=== PATIENT | male | born 1960 | race African-American/Black ===

== ENCOUNTER 2019-03-29 14:12 | Inpatient (IN) | payer OTHER ==
[2019-03-29 16:33] VITALS: BMI 23.1
--- NOTE | 2019-03-29 17:59 | HP ---
COWS - Scale Resting Pulse: 1= NM 81-100 Sweatin= Chills/Flushing Restless Observation: 1= Difficult to Sit Still Pupil Size: 1= Pupils >than Normal Bone or Joint Aches: 2= Severe Diffuse Aches Runny Nose/ Eye Tearin= Runny Nose/Eyes GI Upset > 30mins: 1= Stomach Cramp Tremor Observation: 1= Tremor [place], Not Seen Yawning Observation: 0= None Anxiety or Irritability: 1=Feels Anxious/Irritable Goose Flesh Skin: 3=Piloerection COWS Score: 14 CIWA Score - Admission Criteria [facility] Guidelines: Admission for Medically Managed Detox: Requires at least one of the followin. CIWA greater than 12 2. Seizures within the past 24 hours 3. Delirium tremens within the past 24 hours 4. Hallucinations within the past 24 hours 5. Acute intervention needed for co occurring medical disorder 6. Acute intervention needed for co occurring psychiatric disorder 7. Severe withdrawal that cannot be handled at a lower level of care (continued vomiting, continued diarrhea, abnormal vital signs) requiring intravenous medication and/or fluids 8. Admission ROS [facility] Chief Complaint: detox from heroin and cocaine 59 yo with no stated medical problems, on no medications. First time here. Lives in [place]. Has a court case related to drugs, decided to come here for detox. Says he is not mandated by court. Pt was last in detox in 2018 in [place], says he restarted use right after discharge. Pt has never been on suboxone or methadone. Pt is homeless, does not work. heroin- 3-4 bags/day, last OD 2017, went to ER. Has no narcan kit. Woud like to start MAT methadone/suboxone Jayme- crack $200-300/day THC- rare use no alcohol use tobacco use- 2-3 cigs, does not want nicotine replacement therapy Allergies/Adverse Reactions: Allergies Allergy/AdvReac Type Severity Reaction Status Date / Time red meat Allergy Severe Hives Uncoded 03/29/19 16:23 - Ebola screening Have you traveled outside of the country in the last 21 days: No (N) Have you had contact with anyone from an Ebola affected area: No Do you have a fever: No Patient History - Patient Medical History Hx Anemia: No - Patient Surgical History Past Surgical History: No - PPD History Documented Results: Negative w/o proof PPD to be Administered?: Yes - Smoking Cessation Smoking history: Current every day smoker Have you smoked in the past 12 months: Yes Aproximately how many cigarettes per day: 2 Hx Chewing Tobacco Use: No Initiated information on smoking cessation: Yes 'Breaking Loose' booklet given: 03/29/19 - Substance & Tx. History Hx Alcohol Use: No Hx Substance Use: Yes Substance Use Type: Heroin - Substances abused Heroin Substance route: Inhalation Frequency: Daily Amount used: 2 to 3 bags Age of first use: 55 Date of last use: 03/28/19 Cocaine Substance route: Oral Frequency: Daily Amount used: 100 to 200 dollars Age of first use: 55 Date of last use: 03/28/19 Family Disease History - Family Disease History Family History: Denies Admission Physical Exam [facility] - Vital Signs Vital Signs: Vital Signs - 24 hr 03/29/19 03/29/19 16:22 17:07 Temperature 97.8 F 97.8 F Pulse Rate 86 86 Respiratory 16 16 Rate Blood Pressure 129/86 129/86 - Physical General Appearance: Yes: Within Normal Limits, Mild Distress HEENTM: Yes: Within Normal Limits, EOMI, Hearing grossly Normal, Normal Voice, STEFF Respiratory: Yes: Within Normal Limits, Chest Non-Tender, Lungs Clear Neck: Yes: Within Normal Limits, No masses,lesions,Nodules Cardiology: Yes: Within Normal Limits, Regular Rate, S1, S2 Abdominal: Yes: Within Normal Limits, Normal Bowel Sounds, Non Tender, Flat Back: Yes: Within Normal Limits Musculoskeletal: Yes: Within Normal Limits Extremities: Yes: Within Normal Limits Neurological: Yes: Within Normal Limits, 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 NML intact, Fully Oriented Integumentary: Yes: Within Normal Limits, Normal Color Lymphatic: Yes: Within Normal Limits - Diagnostic (1) Opioid use disorder Current Visit: Yes Status: Acute (2) Cocaine use disorder Current Visit: Yes Status: Acute (3) Tobacco use disorder Current Visit: Yes Status: Acute Breathalyzer - Breathalyzer Breathalyzer: 0 Urine Drug Screen - Test Device Lot number: [id number] Expiration date: 12/22/20 - Control Is test valid?: Yes - Results Drug screen NEGATIVE: No Urine drug screen results: THC-Marijuana, JAYME-Cocaine, FEN-Fentanyl, MOP-Opiates Inpatient Rehab Admission - Rehab Decision to Admit Inpatient rehab admission?: No
[2019-03-29] MEDS ORDERED: clonazePAM 0.5 MG TABLET PO PRN (18:04)
[2019-03-29] MEDS ORDERED: cloNIDine HCL 0.1 MG TABLET PO PRN (18:04)
[2019-03-29] MEDS ORDERED: ACETAMINOPHEN 325 MG TABLET (FP) PO PRN ×2 (18:05)
[2019-03-29] MEDS ORDERED: hydrOXYzine PAMOATE 25 MG CAPSULE (FP) PO PRN (18:05)
[2019-03-29] MEDS ORDERED: MENTHOL/PHENOL 1 EACH UD MM PRN (18:05)
[2019-03-29] MEDS ORDERED: MELATONIN 5 MG TABLETS PO PRN (18:05)
[2019-03-29] MEDS ORDERED: METHOCARBAMOL 500 MG TABLET PO PRN (18:05)
[2019-03-29] MEDS ORDERED: IBUPROFEN 400 MG TABLET (FP) PO PRN (18:05)
[2019-03-29] MEDS ORDERED: MAGNESIUM CITRATE 300 ML BOTTLE PO PRN (18:05)
[2019-03-29] MEDS ORDERED: BISMUTH SUBSALICYLATE 524 MG/30 ML UD PO PRN (18:05)
[2019-03-29] MEDS ORDERED: MAG HYDROX/AL HYDROX/SIMETH 30 ML UNIT-DOSE CUP PO PRN (18:05)
[2019-03-29] MEDS ORDERED: MAGNESIUM HYDROX 2400MG/30ML ORAL SUSPENSION 30 ML CUP PO PRN (18:05)
[2019-03-29] MEDS ORDERED: METHADONE HCL 10 MG TABLET (FOR DETOX USE ONLY) PO ONE ×2 (19:00→23:00)
[2019-03-29] MEDS: THIAMINE HCL 100 MG TABLET (FP) PO SCH (23:43)
[2019-03-30] MEDS ORDERED: ALBUTEROL SO4 8 GM HFA INHALER IH PRN (08:57)
[2019-03-30] MEDS: PRENATAL VITAMINS W/ FOLIC ACID TABLET (FP) PO SCH (09:34)
[2019-03-30] MEDS: BUDESONIDE/FORMETEROL FUMARATE 80/4.5 mcg INHALER IH SCH ×2 (09:34→22:22)
[2019-03-30] MEDS ORDERED: METHADONE HCL 10 MG TABLET (FOR DETOX USE ONLY) PO ONE (10:00)
[2019-03-30 10:26] LABS: HEMATOCRIT 37.3 % (35.4-49); HEMOGLOBIN 12.6 GM/dL (11.7-16.9); MCH 31.6 pg (25.7-33.7); MCHC 33.7 g/dl (32.0-35.9); MEAN PLT VOLUME 8.3 fl (7.5-11.1); PLATELET COUNT 306 K/MM3 (134-434); RBC 3.97 M/mm3 (4.00-5.60); RDW 14.1 % (11.9-15.9); WHITE BLOOD COUNT 4.4 K/mm3 (4.0-10.0)
[2019-03-30 10:30] LABS: ALBUMIN 3.4 g/dl (3.4-5.0); BILIRUBIN,TOTAL 0.4 mg/dL (0.2-1); CALCIUM 8.7 mg/dL (8.5-10.1); CREATININE 1.1 mg/dL (0.55-1.3); TOT PROT 6.3 g/dl (6.4-8.2)
--- NOTE | 2019-03-30 12:06 | PN ---
S COWS - Scale Resting Pulse: 1= CO 81-100 Sweatin= Chills/Flushing Restless Observation: 1= Difficult to Sit Still Pupil Size: 1= Pupils >than Normal Bone or Joint Aches: 2= Severe Diffuse Aches Runny Nose/ Eye Tearin= Nasal Congestion GI Upset > 30mins: 2= Nausea/Diarrhea Tremor Observation of Outstretched Hands: 2= Slight Tremor Visible Yawning Observation: 1= 1-2x During Session Anxiety or Irritability: 2=Irritable/Anxious Goose Flesh Skin: 0=Smooth Skin COWS Score: 14 BHS Progress Note (SOAP) Subjective: alert,irritable,anxious,interrupted sleep,tremor,pain in the body and back Objective: 03/30/19 12:04 Vital Signs Temperature 97.7 F 03/30/19 09:22 Pulse Rate 94 H 03/30/19 09:22 Respiratory Rate 18 03/30/19 09:22 Blood Pressure 140/90 03/30/19 09:22 O2 Sat by Pulse Oximetry (%) Laboratory Last Values WBC 4.4 K/mm3 (4.0-10.0) 03/30/19 07:30 RBC 3.97 M/mm3 (4.00-5.60) L 03/30/19 07:30 Hgb 12.6 GM/dL (11.7-16.9) 03/30/19 07:30 Hct 37.3 % (35.4-49) 03/30/19 07:30 MCV 94.0 fl (80-96) 03/30/19 07:30 MCH 31.6 pg (25.7-33.7) 03/30/19 07:30 MCHC 33.7 g/dl (32.0-35.9) 03/30/19 07:30 RDW 14.1 % (11.9-15.9) 03/30/19 07:30 Plt Count 306 K/MM3 (134-434) 03/30/19 07:30 MPV 8.3 fl (7.5-11.1) 03/30/19 07:30 Sodium 140 mmol/L (136-145) 03/30/19 07:30 Potassium 4.0 mmol/L (3.5-5.1) 03/30/19 07:30 Chloride 106 mmol/L (98-107) 03/30/19 07:30 Carbon Dioxide 29 mmol/L (21-32) 03/30/19 07:30 Anion Gap 5 MMOL/L (8-16) L 03/30/19 07:30 BUN 11 mg/dL (7-18) 03/30/19 07:30 Creatinine 1.1 mg/dL (0.55-1.3) 03/30/19 07:30 Est GFR (CKD-EPI)AfAm 85.31 03/30/19 07:30 Est GFR (CKD-EPI)NonAf 73.61 03/30/19 07:30 Random Glucose 90 mg/dL (74-106) 03/30/19 07:30 Calcium 8.7 mg/dL (8.5-10.1) 03/30/19 07:30 Total Bilirubin 0.4 mg/dL (0.2-1) 03/30/19 07:30 AST 16 U/L (15-37) 03/30/19 07:30 ALT 19 U/L (13-61) 03/30/19 07:30 Alkaline Phosphatase 61 U/L (45-117) 03/30/19 07:30 Total Protein 6.3 g/dl (6.4-8.2) L 03/30/19 07:30 Albumin 3.4 g/dl (3.4-5.0) 03/30/19 07:30 03/30/19 12:05 rpr pending Assessment: 03/30/19 12:06 withdrawal symptom Plan: continue detox
[2019-03-30 19:52] LABS: PH,URINE 5.5 (5.0-8.0); URINE APPEARANCE CLOUDY; URINE BILIRUBIN NEGATIVE (NEGATIVE); URINE COLOR YELLOW; URINE GLUCOSE (UA) TRACE (NEGATIVE); URINE KETONE TRACE (NEGATIVE); URINE LEUK ESTERASE NEGATIVE (NEGATIVE); URINE NITRITE NEGATIVE (NEGATIVE); URINE PROTEIN NEGATIVE (NEGATIVE); URINE UROBILINOGEN 0.2 mg/dL (0.2-1.0)
[2019-03-30] MEDS: THIAMINE HCL 100 MG TABLET (FP) PO SCH (22:22)
[2019-03-31] MEDS ORDERED: METHADONE HCL 10 MG TABLET (FOR DETOX USE ONLY) PO ONE (10:00)
--- NOTE | 2019-03-31 10:01 | PN ---
S CIWA - CIWA Score Nausea/Vomitin Muscle Tremors: 2 Anxiety: 2 Agitation: 2 Paroxysmal Sweats: 1-Minimal Palms Moist Orientation: 0-Oriented Tacttile Disturbances: 1-Very Mild Itch/Numbness Auditory Disturbances: 1-Very Mild Visual Disturbances: 0-None Headache: 1-Very Mild CIWA-Ar Total Score: 12 BHS Progress Note (SOAP) Subjective: alert,irritable,anxious,interrupted sleep,tremor Objective: 03/31/19 10:00 Vital Signs Temperature 98.2 F 03/31/19 09:18 Pulse Rate 79 03/31/19 09:18 Respiratory Rate 18 03/31/19 09:18 Blood Pressure 124/86 03/31/19 09:18 O2 Sat by Pulse Oximetry (%) 03/31/19 10:00 Laboratory Last Values WBC 4.4 K/mm3 (4.0-10.0) 03/30/19 07:30 RBC 3.97 M/mm3 (4.00-5.60) L 03/30/19 07:30 Hgb 12.6 GM/dL (11.7-16.9) 03/30/19 07:30 Hct 37.3 % (35.4-49) 03/30/19 07:30 MCV 94.0 fl (80-96) 03/30/19 07:30 MCH 31.6 pg (25.7-33.7) 03/30/19 07:30 MCHC 33.7 g/dl (32.0-35.9) 03/30/19 07:30 RDW 14.1 % (11.9-15.9) 03/30/19 07:30 Plt Count 306 K/MM3 (134-434) 03/30/19 07:30 MPV 8.3 fl (7.5-11.1) 03/30/19 07:30 Sodium 140 mmol/L (136-145) 03/30/19 07:30 Potassium 4.0 mmol/L (3.5-5.1) 03/30/19 07:30 Chloride 106 mmol/L (98-107) 03/30/19 07:30 Carbon Dioxide 29 mmol/L (21-32) 03/30/19 07:30 Anion Gap 5 MMOL/L (8-16) L 03/30/19 07:30 BUN 11 mg/dL (7-18) 03/30/19 07:30 Creatinine 1.1 mg/dL (0.55-1.3) 03/30/19 07:30 Est GFR (CKD-EPI)AfAm 85.31 03/30/19 07:30 Est GFR (CKD-EPI)NonAf 73.61 03/30/19 07:30 Random Glucose 90 mg/dL (74-106) 03/30/19 07:30 Calcium 8.7 mg/dL (8.5-10.1) 03/30/19 07:30 Total Bilirubin 0.4 mg/dL (0.2-1) 03/30/19 07:30 AST 16 U/L (15-37) 03/30/19 07:30 ALT 19 U/L (13-61) 03/30/19 07:30 Alkaline Phosphatase 61 U/L (45-117) 03/30/19 07:30 Total Protein 6.3 g/dl (6.4-8.2) L 03/30/19 07:30 Albumin 3.4 g/dl (3.4-5.0) 03/30/19 07:30 Urine Color Yellow 03/30/19 15:50 Urine Appearance Cloudy 03/30/19 15:50 Urine pH 5.5 (5.0-8.0) 03/30/19 15:50 Ur Specific [place] 1.026 (1.010-1.035) 03/30/19 15:50 Urine Protein Negative (NEGATIVE) 03/30/19 15:50 Urine Glucose (UA) Trace (NEGATIVE) 03/30/19 15:50 Urine Ketones Trace (NEGATIVE) H 03/30/19 15:50 Urine Blood Negative (NEGATIVE) 03/30/19 15:50 Urine Nitrite Negative (NEGATIVE) 03/30/19 15:50 Urine Bilirubin Negative (NEGATIVE) 03/30/19 15:50 Urine Urobilinogen 0.2 mg/dL (0.2-1.0) 03/30/19 15:50 Ur Leukocyte Esterase Negative (NEGATIVE) 03/30/19 15:50 RPR Titer Nonreactive (NONREACTIVE) 03/30/19 07:30 Assessment: 03/31/19 10:00 withdrawal symptom Plan: continue detox
[2019-03-31] MEDS: PRENATAL VITAMINS W/ FOLIC ACID TABLET (FP) PO SCH (10:54)
[2019-03-31] MEDS: BUDESONIDE/FORMETEROL FUMARATE 80/4.5 mcg INHALER IH SCH ×2 (10:54→22:22)
[2019-03-31] MEDS: THIAMINE HCL 100 MG TABLET (FP) PO SCH (22:22)
[2019-04-01 07:13] VITALS: BP 133/82; PULSE 75; TEMP 96.8
[2019-04-01] MEDS ORDERED: METHADONE HCL 10 MG TABLET (FOR DETOX USE ONLY) PO ONE (10:00)
[2019-04-01] MEDS: PRENATAL VITAMINS W/ FOLIC ACID TABLET (FP) PO SCH (11:02)
[2019-04-01] MEDS: BUDESONIDE/FORMETEROL FUMARATE 80/4.5 mcg INHALER IH SCH (11:02)
--- NOTE | 2019-04-01 11:15 | PN ---
[facility] Progress Note Note: pt refused to take his v/s got up from his bed stating I don't need this mother fucker. I'm out of here. pt refused to be re-directed and started to threaten staff by stating I'm going to fuck all of you. pt wanted to be out, security was called and pt refused to sign any paperwork and he was escorted off the unit. pt was aaox3
--- NOTE | 2019-04-01 11:15 | DS ---
[facility] Detox Discharge Summary Admission Date: 03/29/19 - History Present History: Cocaine Dependence, Opioid Dependence - Physical Exam Results Vital Signs: Vital Signs Temperature 96.8 F L 04/01/19 07:12 Pulse Rate 75 04/01/19 07:12 Respiratory Rate 16 04/01/19 07:12 Blood Pressure 133/82 04/01/19 07:12 O2 Sat by Pulse Oximetry (%) - Treatment Hospital Course: Discharged Condition Good - Medication Discharge Medications: Ambulatory Orders Albuterol Sulfate Inhaler - [Ventolin HFA Inhaler -] 2 inhaler PO Q4HWA PRN 03/12 - Diagnosis (1) Cocaine use disorder Current Visit: Yes Status: Chronic (2) Opioid use disorder Current Visit: Yes Status: Chronic (3) Tobacco use disorder Current Visit: Yes Status: Chronic - AMA Did Patient Leave Against Medical Advice: Yes
[2019-04-02] MEDS ORDERED: METHADONE HCL 5 MG TABLET (FOR DETOX USE ONLY) PO ONE (06:00)
== END 2019-04-01 11:23 | disposition left against medical advice (07) | DRG 770 ==
LOC: YASAS 14:12 → Y6N 18:35
PROVIDERS: ADMIT Surgery; ATTEND Surgery
PROC: HZ2ZZZZ Detoxification Services for Substance Abuse Treatment (ICD-10-PCS; principal; 2019-03-29)
DX: F11.23 Opioid dependence with withdrawal (principal); F14.20 Cocaine dependence, uncomplicated; F17.210 Nicotine dependence, cigarettes, uncomplicated; Z59.0 Homelessness
CPT/HCPCS: 36415; 80053; 81003; 85027; 86593; J0735